=== PATIENT | male | born 1985 | race Caucasian/White ===

== ENCOUNTER 2020-07-14 14:07 | Emergency (ER) | payer SELFPAY ==
--- NOTE | 2020-07-14 14:15 | XR_ITS ---
EXAMINATION: XR CHEST CLINICAL INFORMATION: Fever COMPARISON: None TECHNIQUE: Frontal view of the chest was obtained. FINDINGS: No significant abnormality is noted involving the heart, lungs, mediastinum, bony thorax or soft tissues. XR/XR chest 1V IMPRESSION: Unremarkable chest exam
--- NOTE | 2020-07-14 14:15 | ED.EXTPRO ---
HPI - Extremity Problem General Chief complaint: Extremity Injury, Lower Stated complaint: bilateral foot infection Time Seen by Provider: 07/14/20 14:14 Source: patient and EMS Mode of arrival: EMS Limitations: no limitations History of Present Illness MD Complaint: extremity pain and extremity swelling Onset (ago): day(s) (few) Pain Consistency: constant Location: left and right Quality: aching Radiation: none Relieving factors: nothing Exacerbating factors: walking Associated symptoms: denies other symptoms Context: other (has blisters on his feet and toe pain from tight sneakers) Related Data Allergies Allergy/AdvReac Type Severity Reaction Status Date / Time aripiprazole [From ABILIFY] Allergy Unknown UNKNOWN Unverified 05/25/20 19:05 lithium [LITHIUM] Allergy Unknown UNKNOWN Unverified 05/25/20 19:05 risperidone [From RISPERDAL] Allergy Unknown UNKNOWN Unverified 05/25/20 19:05 Review of Systems Review of Systems: Constitutional : No Fever, No Chills ENT/Mouth : No sore throat, No Rhinorrhea Eyes: No Eye Pain, No Swelling, No Redness Cardiovascular : No Chest Pain, No SOB Respiratory : No Cough, No Sputum Gastrointestinal : No Nausea, No Vomiting, No Diarrhea, No abdominal Pain Genitourinary : No Dysuria, No Hematuria Musculoskeletal : po joint pain, No Myalgias, No Joint Swelling Skin : pos Skin Lesions, positive skin rash Neuro : No Weakness, No Numbness, No Headache Psych : No Anxiety, No Depression Heme/Lymph: No Bruising, No Bleeding,No Lymphadenopathy Endocrine : No Polyuria, No Polydipsia All other systems reviewed and are negative [facility] Past Medical History Attestation statement: The following information was validated with the patient. Medical History (Updated 07/14/20 @ 16:16 by Magda Marin DO) Impulse control disease Substance abuse Social History Social History (Updated 07/14/20 @ 14:20 by Magda Marin DO) Smoking Status: Current every day smoker Substance Use Type: Former Substance User Advance Directives: No Advance Directives Information Provided: No Physical Exam Vital Signs: Vital Signs: Last Vital Signs Temp 99.8 F 07/14/20 15:22 Pulse 95 07/14/20 15:22 Resp 15 07/14/20 15:22 BP 101/62 11/06/20 15:22 Pulse Ox 97 07/14/20 15:22 Body Mass Index 25.1 Appearance: Alert. Oriented X3. No acute distress. appears intoxicated Eyes: Pupils equal, round and reactive to light. ENT: Pharynx normal. Neck: Normal inspection. Neck supple. CVS: Normal heart rate and rhythm. Pulses normal. Respiratory: No respiratory distress. Breath sounds normal. Abdomen: Soft and nontender. Skin: Skin warm and dry. Normal skin color. Normal skin turgor. Extremities: No lower extremity edema. No calf ttp bilateral dorsum of feet have blisters noted and poor nail care as well as fungus there is no drainage, abscess, extending erythema Neuro: Oriented X 3. No motor deficit. No sensory deficit. Course Course Course Narrative: signed out to Dr. Alfredo pending COVID swab, labs MDM - Extremity (Nontraumatic) MDM Narrative Medical decision making narrative: 35 yo male with bilateral foot blisters found to be febrile - denies any symptoms, blisters are not the source, he appears under the influence, adamantly denies IVDA I do not see track clark at this time, will obtain labs, CXR, covid swab, provide socks and wound care Discharge Plan Discharge Clinical Impression: Fever, Blister
[2020-07-14 15:22] VITALS: BP 101/62; BP 140/80; PULSE 68; PULSE 95; RESP 15; TEMP 37.7; O2SAT 97; O2SAT 98; BMI 25.1
[2020-07-14] MEDS: Acetaminophen 325 MG TABLET 650 MG PO (16:41)
--- NOTE | 2020-07-14 17:45 | PC.NURSE ---
pt has been stuck multiple times for blood labs w no success. pt is difficult stick d/t ivda, per pt. pt requesting that he take a break from trying to draw blood.
--- NOTE | 2020-07-14 18:11 | XR_ITS ---
EXAMINATION: XR FOOT, LEFT CLINICAL INFORMATION: Tender great toe with swelling COMPARISON: None TECHNIQUE: AP, lateral, and oblique views of the left foot. FINDINGS: Multiple punctate and linear densities overlie the toes, the majority of which are clearly external, limiting assessment for a subcutaneous foreign body. There is no acute fracture or dislocation. No periarticular osteopenia or erosions. XR/XR foot LT min 3V IMPRESSION: No acute osseous abnormality. Evaluation for subtle foreign body is limited due to overlying densities.
[2020-07-14] MEDS: cephALEXin 500 MG CAPSULE PO (18:22)
--- NOTE | 2020-07-14 18:35 | PC.NURSE ---
provider at bedside. blood labs cancelled. pt asking if he can just have imaging of his feet and abx. provider aware, medicated per emar, tolerating po w/o issue. wctm.
== END 2020-07-14 18:58 | disposition home or self-care (01) ==
PROVIDERS: Emergency Provider Internal Medicine
DX: S90.415A Abrasion, left lesser toe(s), initial encounter (principal); S90.414A Abrasion, right lesser toe(s), initial encounter; R50.9 Fever, unspecified; M79.672 Pain in left foot; M79.671 Pain in right foot; X58.XXXA Exposure to other specified factors, initial encounter; Y93.9 Activity, unspecified; Y92.9 Unspecified place or not applicable; Y99.9 Unspecified external cause status
CPT/HCPCS: 71045; 73630; 99283; 99284

== ENCOUNTER 2020-07-18 00:24 | Emergency (ER) | payer SELFPAY ==
[2020-07-18 00:34] VITALS: BP 118/76; BP 157/75; PULSE 77; PULSE 92; RESP 18; TEMP 37; O2SAT 96; O2SAT 98; BMI 22.8
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
[2020-07-18] MEDS: LORazepam 2 MG/ML VIAL IM (01:25)
--- NOTE | 2020-07-18 01:29 | PC.NURSE ---
Provider at bedside to staple patient's laceration. Patient medicated per Emar as noted to enable patient to tolerate the procedure as patient didn't want any lidocaine used. Patient tolerated the procedure without incident. patient received 5 kiran to laceration on left side of head
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
[2020-07-18 02:00] VITALS: RESP 15
--- NOTE | 2020-07-18 02:02 | PC.NURSE ---
Patient is ready for discharge but is currently resting and will be discharged in a couple of hours.
[2020-07-18 04:00] VITALS: RESP 15
[2020-07-18 06:00] VITALS: BP 110/77; PULSE 77; RESP 14; O2SAT 95
--- NOTE | 2020-07-18 06:04 | PC.NURSE ---
Patient had been ready for discharge since 145 am today. 1st attempt made to discharge patient but he kept falling asleep. Patient was allowed to stay and sleeping until 5:00 am. Attempted to discharge patient again. Patient quite sleepy but does rouse to voice. This copywriter unable to get patient awake and alert enough and security called to help rouse patient so that he could be discharge. Patient would rouse and then immediately fall asleep. Security and staff unable to keep patient awake enough to get dressed and be discharged. MD and Charge nurse away.
--- NOTE | 2020-07-18 07:56 | PC.NURSE ---
pt given 30 min to wake up and get dressed. pt still not moving out of bed. security called to escort pt out of room.
== END 2020-07-18 08:08 | disposition home or self-care (01) ==
PROVIDERS: Emergency Provider Emergency Medicine
DX: S01.01XA Laceration without foreign body of scalp, initial encounter (principal); G44.309 Post-traumatic headache, unspecified, not intractable; Y04.8XXA Assault by other bodily force, initial encounter; Y93.9 Activity, unspecified; Y92.410 Unspecified street and highway as the place of occurrence of the external cause; Y99.9 Unspecified external cause status; Z23 Encounter for immunization
CPT/HCPCS: 70450; 70486; 72125; 90471; 90715; 96372; 99284; J2060

== ENCOUNTER 2021-04-19 22:08 | Emergency (ER) | payer MEDICAID, SELFPAY ==
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
[2021-04-19 22:17] VITALS: BP 128/90; PULSE 70; O2SAT 99
[2021-04-20 03:13] VITALS: BP 103/65; PULSE 54; RESP 16; O2SAT 100; BMI 21.7
[2021-04-20 04:00] VITALS: BP 124/76; PULSE 68; RESP 18; O2SAT 98
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
== END 2021-04-20 06:53 | disposition home or self-care (01) ==
PROVIDERS: Emergency Provider Student in an Organized Health Care Education/Training Program
DX: S00.93XA Contusion of unspecified part of head, initial encounter (principal); G44.309 Post-traumatic headache, unspecified, not intractable; F17.200 Nicotine dependence, unspecified, uncomplicated; F12.90 Cannabis use, unspecified, uncomplicated; Y04.8XXA Assault by other bodily force, initial encounter; Y93.9 Activity, unspecified; Y92.410 Unspecified street and highway as the place of occurrence of the external cause; Y99.9 Unspecified external cause status; Z71.6 Tobacco abuse counseling
CPT/HCPCS: 70450; 99284

== ENCOUNTER 2021-12-09 05:54 | Emergency (ER) | payer MEDICAID, SELFPAY ==
[2021-12-09 06:03] VITALS: BP 125/74; PULSE 107; RESP 15; TEMP 37.7; O2SAT 94; BMI 24.4
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
[2021-12-09 08:45] LABS: MANUAL DIFF FLAG NO
[2021-12-09 08:46] LABS: Basophils Percent Auto 0.3 % (0-2); Eosinophils Percent Auto 0.2 % (0-4); Hematocrit 35.2 % (42.0-52.0); Hemoglobin 11.6 g/dl (14.0-18.0); Imm Gran Abs Auto 0.03 X10*3/uL (0.00-0.03); Imm Gran Pct Auto 0.3 % (0.0-0.4); Lymphocytes Absolute Auto 1.1 X10*3/uL (1.2-4.9); Lymphocytes Percent Auto 9.7 % (20-40); Mean Corpuscular Hemoglobin 28.2 pg (27.0-33.0); Mean Corpuscular Volume 85.6 fL (80.0-98.0); Mean Platelet Volume 9.4 fL (9.4-12.4); Monocytes Percent Auto 9.5 % (2-11); Neutrophils Absolute Auto 8.6 x10*3/uL (2.0-8.3); Platelet Count 223 X10*3/uL (160-400); Red Blood Count 4.11 X10*6/uL (4.60-5.80); Red Cell Distribution Width 14.4 % (11.0-16.0); White Blood Count 10.8 X10*3/uL (4.8-10.8)
[2021-12-09 09:07] LABS: Ethanol < 10 mg/dL
[2021-12-09 09:10] LABS: Alanine Aminotransferase 20 U/L (0-40); Albumin Level 4.1 g/dL (3.5-5.0); Alkaline Phosphatase 71 U/L (39-117); Anion Gap 14 (12-20); Aspartate Amino Transferase 29 U/L (5-37); Bilirubin Direct 0.5 mg/dL (0.0-0.5); Bilirubin Total 1.1 mg/dL (0.0-1.0); Blood Urea Nitrogen 17 mg/dL (9-16); Calcium 9.1 mg/dL (8.4-10.2); Carbon Dioxide 26 mmol/L (22-29); Chloride 103 mmol/L (96-108); Creatinine Clr Calc Pharmacy 147.5; Estimated Glomerular Filt Rate > 60; Glucose Random 90 mg/dL (60-115); Lipase 6 U/L (8-78); Potassium 3.5 mmol/L (3.3-5.1); Sodium 139 mmol/L (135-145); Total Protein 6.8 g/dL (6.5-8.0)
--- NOTE | 2021-12-09 12:50 | MHC.CARE ---
Risk Assessment: Pt presented to the ED with polysubstnace use. Pt is currently denying SI/HI/VH/AH. Pt reports he is from [place] and in this area due to cheaper drugs. Pt reports history of methadone and suboxone. Pt reports interest in substance use treatment. Plan for Pt to be deferred to recovery team for assistance with detox placement CARE Team discussed plan with Dr. Ramirez
--- NOTE | 2021-12-09 14:19 | MHC.RECOVSUP ---
Recovery Support note: Patient is a 36 year old Malay speaking male who presented to [facility] [place] ED after using heroin seeking treatment. Patient was cleared by CARE Team and referred to this scenario writer for assistance with ATS referrals. Patient reports he has been to ATS multiple times in [place] and that he has been on Suboxone and methadone. Patient interested in going to [place] for treatment as he is unable to admit to a [place] facility due to insurance. [facility]y [facility] and [facility] contacted however they do not process referrals over the weekend. Patient release and information sent for review. Discussed situation with patient's Mother, Barbara ([phone]). She is comfortable with patient returning home however reports that they are elderly and unable to provide transportation. Discussed case with patient. He is interested in receiving a Suboxone prescription to hold him over until he can get into treatment. Education provided regarding Suboxone initiation. Patient reports no questions at this time. Discussed case with CARE Team and ED staff. Patient to be transported via Lyft. This scenario writer will follow up with Sarahy Wagner and patient tomorrow.
== END 2021-12-09 14:09 | disposition home or self-care (01) ==
PROVIDERS: Emergency Provider Emergency Medicine
DX: F11.10 Opioid abuse, uncomplicated (principal); F14.10 Cocaine abuse, uncomplicated; F17.200 Nicotine dependence, unspecified, uncomplicated; Z71.6 Tobacco abuse counseling; Z79.899 Other long term (current) drug therapy; Z71.51 Drug abuse counseling and surveillance of drug abuser
CPT/HCPCS: 36415; 80048; 80076; 82077; 83690; 85025; 99284; 99285

== ENCOUNTER 2022-01-23 23:30 | Emergency (ER) | payer MEDICAID, SELFPAY ==
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
[2022-01-23 23:38] VITALS: BP 152/90; PULSE 88; O2SAT 96
--- NOTE | 2022-01-23 23:47 | PC.NURSE ---
pt yelling upon arrival, i need perc 30s, i want my gabapentin MD over to see pt. MD gave pt sandwiches and milk. when this RN went to assess pt, and ask about pain.. pt stated, I dont need to talk to you, I already talked to the doctor
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
[2022-01-24] MEDS: Gabapentin 400 MG CAPSULE PO (00:30)
[2022-01-24 00:31] VITALS: BP 126/65; PULSE 84; RESP 18; TEMP 36.1; O2SAT 96
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
--- NOTE | 2022-01-24 00:58 | PC.NURSE ---
pt ambulated to BR to void. steady gait while ambulating independently
[2022-01-24 01:06] LABS: Appearance Urine HAZY; Color Urine DK YELLOW; Glucose Urine UA NEG (NEG); Leukocyte Esterase Urine NEG (NEG); Nitrite Urine NEG (NEG); Specific Gravity - Urine >= 1.030 (1.005-1.025); UACC Culture Trigger NO; Urine Blood NEG (NEG); Urine Ketones NEG (NEG); Urine Protein 1+ MG/DL (NEG-TRACE)
[2022-01-24 01:18] LABS: Bacteria Urine TRACE /LPF; Mucus Urine 2+ /LPF; RBC Urine 0 /HPF (0); WBC Urine 0-2 /HPF (0-4)
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
[2022-01-24 01:30] LABS: Amphetamine Screen Urine Not Detected (Not Detect); Barbiturates, Urine Not Detected (Not Detect); Benzodiazepines Screen Urine Not Detected (Not Detect); Cannabinoid Screen Urine POSITIVE (Not Detect); Cocaine Screen Urine POSITIVE (Not Detect); Fentanyl, urine POSITIVE (Not Detect); Opiate Screen Urine POSITIVE (Not Detect); Phencyclidine Screen Urine POSITIVE (Not Detect)
--- NOTE | 2022-01-24 03:54 | PC.NURSE ---
pt sleeping in bed
[2022-01-24 05:52] VITALS: BP 112/73; PULSE 57; RESP 18; TEMP 37.1; O2SAT 98
[2022-01-24] MEDS: Erythromycin Base 0.5% Oph Oin 1 GM TUBE 1 CM EYE-RIGHT (06:02)
[2022-01-24 07:08] VITALS: BMI 24.4
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
--- NOTE | 2022-01-24 10:36 | MHC.RECOVSUP ---
? Reason for consult:Recovery Support o Current location:ED 22h o Identified substance use concern: Heroin - Support ? Intervention: o Community resources provided o ? Plan: o Referral to [facility] o Patient to follow up with [facility] after discharge ? Additional information:Patient refused detox, Patient given community resources and referred to [facility] and the [facility]
== END 2022-01-24 10:49 | disposition home or self-care (01) ==
LOC: HO.ED 01-24 01:02
PROVIDERS: Emergency Provider Emergency Medicine
DX: T40.1X1A Poisoning by heroin, accidental (unintentional), initial encounter (principal); H10.9 Unspecified conjunctivitis; M79.601 Pain in right arm; M79.602 Pain in left arm; Y92.9 Unspecified place or not applicable; Z71.51 Drug abuse counseling and surveillance of drug abuser; Z79.899 Other long term (current) drug therapy
CPT/HCPCS: 73060; 73090; 80307; 81001; 99284

== ENCOUNTER 2022-04-19 09:22 | Emergency (ER) | payer MEDICAID, SELFPAY ==
[2022-04-19 09:32] VITALS: BP 129/81; PULSE 85; RESP 18; TEMP 37.4; O2SAT 96; BMI 24.4
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
== END 2022-04-19 10:42 | disposition home or self-care (01) ==
PROVIDERS: Emergency Provider Student in an Organized Health Care Education/Training Program
DX: L03.011 Cellulitis of right finger (principal); M79.644 Pain in right finger(s); T23.121A Burn of first degree of single right finger (nail) except thumb, initial encounter; T31.0 Burns involving less than 10% of body surface; T79.8XXA Other early complications of trauma, initial encounter; X19.XXXA Contact with other heat and hot substances, initial encounter; Y93.89 Activity, other specified; Y92.143 Cell of prison as the place of occurrence of the external cause; Y99.9 Unspecified external cause status; F19.10 Other psychoactive substance abuse, uncomplicated; F11.20 Opioid dependence, uncomplicated
CPT/HCPCS: 16000; 99283

== ENCOUNTER 2024-06-23 23:54 | Emergency (ER) | payer MEDICAID, SELFPAY ==
--- NOTE | ~2024-06-23 | XR_ITS ---
EXAMINATION: XR FOOT, RIGHT CLINICAL INFORMATION: Pain in right foot COMPARISON: None available. TECHNIQUE: AP, lateral, and oblique views of the right foot. FINDINGS: The bones and soft tissues are normal. No fracture. Alignment is anatomic. Joint spaces are maintained. XR/XR foot RT min 3V IMPRESSION: Normal right foot. Electronically signed by: Rambo De La Garza MD 06/24/2024 07:52 AM EDT RP
--- NOTE | ~2024-06-23 | XR_ITS ---
EXAMINATION: XR CHEST CLINICAL INFORMATION: Cough. COMPARISON: July 14, 2020. TECHNIQUE: Frontal view of the chest was obtained. FINDINGS: The cardiomediastinal silhouette is within normal limits. There is no focal lung consolidation or pleural effusions. The bony structures and soft tissues are unremarkable. XR/XR chest 1V IMPRESSION: No acute cardiopulmonary process. Electronically signed by: Gray Wilson MD 06/24/2024 06:21 AM EDT
--- NOTE | ~2024-06-23 | XR_ITS ---
EXAMINATION: XR FOOT, LEFT CLINICAL INFORMATION: Left foot pain. COMPARISON: None available. TECHNIQUE: AP, lateral, and oblique views of the left foot. FINDINGS: The bones and soft tissues are normal. No fracture. Alignment is anatomic. Joint spaces are maintained. XR/XR foot LT min 3V IMPRESSION: Normal left foot. Electronically signed by: Rambo De La Garza MD 06/24/2024 07:54 AM EDT
[2024-06-24] VITALS (7 sets, daily range): BP systolic 90–150; BP diastolic 41–84; PULSE 75–86; RESP 12–16; TEMP -17.7–37.9; O2SAT 96–100; BMI 28.9
--- NOTE | 2024-06-24 00:12 | ECG_ITS ---
Test Reason : TACHY Blood Pressure : / mmHG Vent. Rate : 081 BPM Atrial Rate : 081 BPM P-R Int : 154 ms QRS Dur : 094 ms QT Int : 368 ms P-R-T Axes : 078 076 060 degrees QTc Int : 427 ms Artifact in tracing Normal sinus rhythm Premature ventricular complexes otherwise Normal ECG No previous ECGs available Referred By: Maik Angel Electronically Signed By:JACKY ELIZALDE
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
[2024-06-24 00:53] LABS: MANUAL DIFF FLAG NO
[2024-06-24 00:57] LABS: Basophils Percent Auto 0.2 % (0-2); Eosinophils Percent Auto 0.1 % (0-4); Hematocrit 34.3 % (42.0-52.0); Hemoglobin 11.5 g/dl (14.0-18.0); Imm Gran Abs Auto 0.09 X10*3/uL (0.00-0.03); Imm Gran Pct Auto 0.7 % (0.0-0.4); Lymphocytes Absolute Auto 1.1 X10*3/uL (1.2-4.9); Lymphocytes Percent Auto 8.5 % (20-40); Mean Corpuscular HGB Conc 33.5 g/dl (31.0-36.0); Mean Corpuscular Hemoglobin 30.2 pg (27.0-33.0); Mean Platelet Volume 9.4 fL (9.4-12.4); Monocytes Absolute Auto 1.1 X10*3/uL (0.1-1.2); Monocytes Percent Auto 8.6 % (2-11); Neutrophils Absolute Auto 10.7 x10*3/uL (2.0-8.3); Neutrophils Percent Auto 81.9 % (45-73); Platelet Count 292 X10*3/uL (160-400); Red Blood Count 3.81 X10*6/uL (4.60-5.80); Red Cell Distribution Width 13.8 % (11.0-16.0); White Blood Count 13.1 X10*3/uL (4.8-10.8)
[2024-06-24 01:15] LABS: Alanine Aminotransferase 80 U/L (0-40); Albumin Level 4.1 g/dL (3.5-5.0); Alkaline Phosphatase 72 U/L (39-117); Anion Gap 15 (12-20); Aspartate Amino Transferase 124 U/L (5-37); Bilirubin Total 0.6 mg/dL (0.0-1.0); Blood Urea Nitrogen 17 mg/dL (9-16); Calcium 9.3 mg/dL (8.4-10.2); Carbon Dioxide 28 mmol/L (22-29); Chloride 102 mmol/L (96-108); Creatinine Clr Calc Pharmacy 120.5; Estimated Glomerular Filt Rate > 60; Ethanol < 10 mg/dL; Glucose Random 122 mg/dL (60-115); Potassium 3.5 mmol/L (3.3-5.1); Sodium 141 mmol/L (135-145); Total Protein 6.8 g/dL (6.5-8.0)
[2024-06-24] MEDS: droPERidol 5 MG/2 ML VIAL IM (01:27)
[2024-06-24] MEDS: Midazolam HCl 5 MG/ML VIAL IVPUSH (01:31)
[2024-06-24 01:33] LABS: Influenza A PCR NEGATIVE (Negative); Influenza B PCR NEGATIVE (Negative); Resp Syncy Virus RNA Qual PCR NEGATIVE (Negative); SARS COV2 PCR INHOUSE NEGATIVE (Negative)
--- NOTE | 2024-06-24 01:54 | ED.GENADULT ---
HPI - General Adult General Chief complaint: Behavioral Concerns Stated complaint: FOOT PAIN/ POSSIBLE INFECTION Time Seen by Provider: 06/24/24 00:05 History of Present Illness ED Provider: Stanley DUMONT narrative: 3-year-old male with past medical history of polysubstance abuse presenting for bilateral foot pain and agitation. Patient was picked up by ambulance by [facility] and he was visibly agitated complaining of bilateral foot pain. Patient arrived to the ED still agitated initially not cooperating with staff however he eventually calmed down and told me that his feet have been bothering him and that ?electronic communications technician are trying to kill me?. He denies head pain, neck pain, chest pain, shortness of breath, abdominal pain. He denies SI however endorses HI. He denies drug use/alcohol use. Related Data Previous Rx's ?Medication ?Instructions ?Recorded buprenorphine 8 mg-naloxone 2 mg 1 film buccal DAILY #4 ea 12/09/21 sublingual film (Suboxone) erythromycin 5 mg/gram (0.5 %) eye 0.5 inch ophthalmic (eye) TID #3.5 01/24/22 ointment grams cephalexin 500 mg tablet 500 mg PO Q6H 7 days #28 tabs 04/19/22 doxycycline hyclate 50 mg tablet 100 mg (2 x 50 mg) PO BID 7 days 04/19/22 #28 tabs Allergies Allergy/AdvReac Type Severity Reaction Status Date / Time aripiprazole [From ABILIFY] Allergy Unknown UNKNOWN Verified 06/24/24 00:15 lithium [LITHIUM] Allergy Unknown UNKNOWN Verified 06/24/24 00:15 risperidone [From RISPERDAL] Allergy Unknown UNKNOWN Verified 06/24/24 00:15 Review of Systems Review of Systems: Patient endorses for pain, HI Yes all other systems are reviewed and are negative PMFSH Past Medical History Medical History Impulse control disease Substance abuse Surgical History No history of previous surgery Social History Social History Alcohol intake: current Alcohol intake frequency: 3 or more drinks per day Patient Tobacco Use Status: Current everyday Tobacco user Substance Use Type: Crack/Cocaine and Heroin Advance Directives: No Advance Directives Information Provided: Yes Do you have a plan to hurt others: Vague Physical Exam ED Vital Signs: Vital Signs - 24 hr 06/24/24 00:06 06/24/24 02:13 Temperature 100.2 F Pulse Rate 85 86 Respiratory Rate 16 14 Blood Pressure 126/77 Pulse Oximetry 96 100 Oxygen Delivery Method Room Air BMI result Body Mass Index 28.9 Disheveled appearance Head normocephalic atraumatic; no midline C-spine tenderness to palpation Lungs clear to auscultation bilaterally; normal S1-S2 regular rate and rhythm Abdomen is soft nontender nondistended Superficial abrasions noted to bilateral feet and areas of peeling noted to the soles; neurovascularly intact with good DP pulses Medications Administered Discontinued Medications Generic Name Dose Route Start Last Admin Trade Name Freq PRN Reason Stop Dose Admin Droperidol 5 mg 06/24/24 01:14 06/24/24 01:27 Droperidol 5 Mg/2 Ml Vial IM 06/24/24 01:15 5 mg ONCE ONE Administration Ketorolac Tromethamine 15 mg 06/24/24 00:13 06/24/24 00:42 Ketorolac Tromethamine 15 Mg/Ml Vial IVPUSH 06/24/24 00:14 Not Given ONCE ONE Midazolam HCl 5 mg 06/24/24 01:30 06/24/24 01:31 Midazolam Hcl 5 Mg/Ml Vial IVPUSH 06/24/24 01:31 5 mg ONCE ONE Administration Medical Decision Making Medical Decision Making MDM Narrative: This is a 39-year-old male presenting for for pain and agitation. I am concerned for psychiatric illness versus underlying infection versus electrolyte/metabolic disturbance - lab work ordered - patient becoming more and more agitated in the ED. I had multiple discussions with him asked him and offered p.o. antipsychotics however patient declined stating he does not want take any meds. - patient moved to a hallway for better supervision and there he became more agitated getting about of a stretcher threatening to leave. Security called and report the bedside for assistance. I again offered patient p.o. meds however declines and he is not taking anything stating that he wants to call the police. Patient continuing to get out of the stretcher with multiple staff including secruity and nurses at bedside attempting to de-escalate. - droperidol and Versed administered with good effect - pt placed on endtidal - mass notable for mildly elevated white count, stable H and H, normal electrolytes and creatinine, elevated AST - he is still patient here in the emergency department and I signed him out to the night provider Lab Data 06/24/24 00:49 06/24/24 00:49 Labs: Lab Results 06/24/24 Range/Units 00:49 WBC 13.1 H (4.8-10.8) X10*3/uL RBC 3.81 L (4.60-5.80) X10*6/uL Hgb 11.5 L (14.0-18.0) g/dl Hct 34.3 L (42.0-52.0) % MCV 90.0 (80.0-98.0) fL MCH 30.2 (27.0-33.0) pg MCHC 33.5 (31.0-36.0) g/dl RDW 13.8 (11.0-16.0) % Plt Count 292 D (160-400) X10*3/uL MPV 9.4 (9.4-12.4) fL Immature Gran % (Auto) 0.7 H (0.0-0.4) % Neut % (Auto) 81.9 H (45-73) % Lymph % (Auto) 8.5 L (20-40) % [place] % (Auto) 8.6 (2-11) % Eos % (Auto) 0.1 (0-4) % Baso % (Auto) 0.2 (0-2) % Lymph # (Auto) 1.1 L (1.2-4.9) X10*3/uL [place] # (Auto) 1.1 (0.1-1.2) X10*3/uL Eos # (Auto) 0.0 (0.0-0.4) X10*3/uL Baso # (Auto) 0.0 (0.0-0.2) X10*3/uL Abs Immat Gran (auto) 0.09 H (0.00-0.03) X10*3/uL Absolute Neuts (auto) 10.7 H (2.0-8.3) x10*3/uL Absolute Nucleated RBC 0.000 (0.0-0.012) X10*3/uL Nucleated RBC % (auto) 0.0 (0.0-0.2) /100WBC Sodium 141 (135-145) mmol/L Potassium 3.5 (3.3-5.1) mmol/L Chloride 102 (96-108) mmol/L Carbon Dioxide 28 (22-29) mmol/L Anion Gap 15 (12-20) BUN 17 H (9-16) mg/dL Creatinine 0.87 (0.5-1.4) mg/dL Estim Creat Clear Calc 120.5 Estimated GFR > 60 Random Glucose 122 H (60-115) mg/dL Calcium 9.3 (8.4-10.2) mg/dL Total Bilirubin 0.6 (0.0-1.0) mg/dL AST 124 H (5-37) U/L ALT 80 H (0-40) U/L Alkaline Phosphatase 72 (39-117) U/L Total Protein 6.8 (6.5-8.0) g/dL Albumin 4.1 (3.5-5.0) g/dL Ethyl Alcohol < 10 mg/dL Influenza Type A (PCR) NEGATIVE (Negative) Influenza Type B (PCR) NEGATIVE (Negative) RSV RNA Qual (PCR) NEGATIVE (Negative) SARS-CoV-2 RNA (RT-PCR) NEGATIVE (Negative) Discharge Plan Discharge Clinical Impression: Homicidal ideations, Agitation, Bilateral foot pain Patient Disposition: Still a Patient Prescriptions: No Action buprenorphine-naloxone [Suboxone] 8-2 mg film 1 film buccal DAILY Qty: 4 0RF erythromycin 5 mg/gram (0.5 %) ointment 0.5 inch ophthalmic (eye) TID Qty: 3.5 0RF Rx Instructions: Have ribbon to the right eye 3 times a day for 5 days doxycycline hyclate 50 mg tablet 100 mg PO BID 7 Days Qty: 28 0RF cephalexin 500 mg tablet 500 mg PO Q6H 7 Days Qty: 28 0RF Print Language: Tristanian
--- NOTE | 2024-06-24 02:14 | MHC.EDTECH ---
UTO BP due to pt being uncooperative. KAVITA crystal
[2024-06-24 11:27] LABS: Appearance Urine Clear; Color Urine Dark Yellow; Glucose Urine UA Negative (Negative); Leukocyte Esterase Urine Negative (Negative); Nitrite Urine Negative (Negative); PH 6.5 (5.0-9.0); Specific Gravity - Urine >= 1.030 (1.005-1.025); UMIC TRIGGER UACC YES; Urine Blood Negative (Negative); Urine Ketones 15 mg/dL (Negative); Urine Protein 30 (1+) mg/dL (Neg-Trace)
[2024-06-24 11:33] LABS: Bacteria Urine None Seen (None Seen); Hyaline Casts Urine 0-2 /LPF (0-2); RBC Urine 0-2 /HPF (0-2); Squamous Epithelial Cell Urine 0-2 /HPF (0-2); WBC Urine 0-5 /HPF (0-5)
[2024-06-24 11:39] LABS: Amphetamine Screen Urine Not Detected (Not Detect); Barbiturates, Urine Not Detected (Not Detect); Benzodiazepines Screen Urine POSITIVE (Not Detect); Buprenorphine Scr Not Detected (Not Detect); Cannabinoid Screen Urine POSITIVE (Not Detect); Cocaine Screen Urine POSITIVE (Not Detect); Fentanyl, urine POSITIVE (Not Detect); Methadone Screen, Urine Not Detected (Not Detect); Opiate Screen Urine POSITIVE (Not Detect); Oxycodone Screen Urine Not Detected (Not Detect); Phencyclidine Screen Urine Not Detected (Not Detect)
== END 2024-06-24 13:26 | disposition home or self-care (01) ==
PROVIDERS: Student in an Organized Health Care Education/Training Program; Emergency Provider Emergency Medicine
DX: M79.671 Pain in right foot (principal); M79.672 Pain in left foot; R45.1 Restlessness and agitation; R00.0 Tachycardia, unspecified; R45.850 Homicidal ideations; F17.210 Nicotine dependence, cigarettes, uncomplicated; F11.90 Opioid use, unspecified, uncomplicated; F14.90 Cocaine use, unspecified, uncomplicated; Z03.818 Encounter for observation for suspected exposure to other biological agents ruled out; Z51.81 Encounter for therapeutic drug level monitoring; Z79.899 Other long term (current) drug therapy
CPT/HCPCS: 0241U; 36415; 71045; 73630; 80053; 80307; 81001; 85025; 93005; 96372; 96374; 99285; J1790; J1885; J2250; S9485

== ENCOUNTER → 2024-06-24 00:12 | Outpatient (BNV) | payer MEDICAID, SELFPAY | PROVIDERS: Emergency Provider Emergency Medicine; Visit Provider Internal Medicine | DX: R00.0 Tachycardia, unspecified (principal) | CPT/HCPCS: 93010 ==

== ENCOUNTER 2024-07-17 13:29 | Emergency (ER) | payer MEDICAID, SELFPAY ==
--- NOTE | ~2024-07-17 | XR_ITS ---
EXAMINATION: XR FOOT, LEFT CLINICAL INFORMATION: Left foot pain COMPARISON: Left foot xray on 06/24/24 TECHNIQUE: AP, lateral, and oblique views of the left foot. FINDINGS: The bones and soft tissues are normal. No fracture. Alignment is anatomic. Joint spaces are maintained. XR/XR foot LT min 3V IMPRESSION: Normal left foot. Electronically signed by: Shaniqua Monaco MD 07/17/2024 04:31 PM [facility]
[2024-07-17 13:34] VITALS: BP 98/76; PULSE 91; RESP 18; TEMP 37.3; O2SAT 99; BMI 32.5
--- NOTE | 2024-07-17 13:34 | ED.EXTPRO ---
HPI - Extremity Problem General Chief complaint: Extremity Problem Stated complaint: both foot pain Time Seen by Provider: 07/17/24 13:46 Source: patient Mode of arrival: ambulatory Limitations: no limitations History of Present Illness ED Provider: Catrina Frazier APRN HPI Narrative: This is a 39-year-old male who has a history of polysubstance abuse who has chronic wounds on his both of his feet who reports increasing redness and swelling to his left foot over the last few days. No fevers or chills. Patient reports that he sniffs drugs but he has not use IV drugs and more than 3 years. He denies using IV drugs in his feet. He is here because he would like some antibiotics. He does not want to be admitted to the hospital if he needs it. He is not currently taking any Suboxone or methadone and is not interested in this Related Data Previous Rx's ?Medication ?Instructions ?Recorded buprenorphine 8 mg-naloxone 2 mg 1 film buccal DAILY #4 ea 12/09/21 sublingual film (Suboxone) erythromycin 5 mg/gram (0.5 %) eye 0.5 inch ophthalmic (eye) TID #3.5 01/24/22 ointment grams cephalexin 500 mg tablet 500 mg PO Q6H 7 days #28 tabs 04/19/22 doxycycline hyclate 50 mg tablet 100 mg (2 x 50 mg) PO BID 7 days 04/19/22 #28 tabs cephalexin 500 mg capsule 500 mg PO TID 10 days #30 caps 07/17/24 doxycycline hyclate 100 mg tablet 100 mg PO BID 10 days #20 tabs 07/17/24 Allergies Allergy/AdvReac Type Severity Reaction Status Date / Time aripiprazole [From ABILIFY] Allergy Unknown UNKNOWN Verified 07/17/24 13:38 lithium [LITHIUM] Allergy Unknown UNKNOWN Verified 07/17/24 13:38 risperidone [From RISPERDAL] Allergy Unknown UNKNOWN Verified 07/17/24 13:38 Review of Systems Review of Systems: Yes all other systems are reviewed and are negative Constitutional: Constitutional: Reports no additional constitutional complaints, Denies body ache(s), Denies chills, Denies fever(s), Denies headache(s) and Denies weakness Eyes: Eyes: Reports no additional eye complaints and Denies change in vision ENT: Reports system reviewed and no additional complaints, except as documented, Denies dizziness, Denies headache(s), Denies nasal congestion, Denies nasal discharge and Denies neck pain Cardiovascular: Cardiovascular: Reports no additional cardiovascular complaints, Denies chest pain, Denies leg edema and Denies dyspnea Respiratory: Respiratory: Reports no additional respiratory complaints, Denies cough and Denies dyspnea Gastrointestinal: Gastrointestinal: Reports no additional gastrointestinal complaints, Denies abdominal pain, Denies diarrhea, Denies nausea and Denies vomiting Genitourinary: Genitourinary: Denies urinary incontinence Musculoskeletal: Musculoskeletal: Reports no additional musculoskeletal complaints, Denies back pain, Denies arthralgias, Denies joint swelling, Denies neck pain, Denies numbness and Denies tingling Integumentary/Breasts: Skin/Breast: Reports system reviewed and no additional complaints, except as docu, Reports swelling, Reports erythema, Denies rash and Reports wounds Neurologic: Reports system reviewed and no additional complaints, except as documented, Denies Abnormal speech present, Denies dizziness, Denies headache(s), Denies numbness, Denies tingling and Denies weakness PMFSH Past Medical History Attestation statement: The following information was validated with the patient. Source: old records reviewed and nursing notes reviewed Medical History Impulse control disease Substance abuse Surgical History No history of previous surgery Social History Social History Unable to assess alcohol history related to: Refusing to respond Alcohol intake: current Alcohol intake frequency: 3 or more drinks per day Patient Tobacco Use Status: Current everyday Tobacco user Substance Use Type: Crack/Cocaine and Heroin Advance Directives: No Advance Directives Information Provided: No Physical Exam Vital Signs: Vital Signs: Last Vital Signs Temp 99.2 F 07/17/24 13:34 Pulse 91 07/17/24 13:34 Resp 18 07/17/24 13:34 BP 98/76 07/17/24 13:34 Pulse Ox 99 07/17/24 13:34 O2 Del Method Room Air 07/17/24 13:34 BMI result Body Mass Index 32.5 Const: Other: disheveled General: alert and poor hygiene Nutritional Appearance: thin Orientation/consciousness: patient oriented x3 Limitations: no limitations HEENT: Head: Yes normal to inspection Ears: hearing grossly normal bilaterally General nose exam: Normal external nose present Face and sinus: Yes normal facial exam Mouth: Normal oral and palatal mucosa present Throat: Yes posterior oropharynx normal Eyes: General: appearance normal, both eyes and all related structures Pupils: Equal, round and reactive pupils present Neck: Neck: Yes normal visual inspection Chest: Chest palpation & inspection: normal inspection of the chest Resp: Effort & Inspection: normal respiratory effort Auscultation: clear to auscultation bilaterally Cardio: Rate: regular rate Rhythm: regular rhythm Peripheral pulses: Peripheral pulses 2+ throughout GI: Inspection: Yes normal to inspection Palpation (GI): Soft to palpation and nontender Auscultation: normal bowel sounds Back/Spine/Pelvis: Thoracic/Lumbar Spine: thoracic and lumbar spine normal to inspection Skin: General skin exam: no rashes or lesions noted Neuro: General: patient oriented x3, no focal motor deficits and normal sensation to monofilament Cranial nerves: Yes Equal, round and reactive pupils present Cognition (Neuro): normal cognition Speech: No Abnormal speech present Gait exam (Neuro): Normal gait present Motor exam (neuro): 5/5 motor strength present throughout Extrem: Other: Patient has some lymphangitis noted 2+ DP/PT pulses Normal sensation FROM Course Course Course Narrative: This is an RME performed by Mery Watkins CNP: Additional HPI, ROS, PE not included below will be deferred to primary provider. Patient is a 39-year-old male presents emergency department for evaluation of bilateral foot pain and concern for infection. Ongoing for many months. Seen in this emergency department about 1 month ago. Reports last seen at a hospital in [facility] about 1 week ago, states was not discharged with any antibiotics. Left foot is worse than the right. Admits to a history of bacteremia proximally 3 years ago secondary to intravenous heroin usage. Admits only to intranasal heroin usage now. Exam: Dorsum of left foot with erythema, black central fluctuance, TTP, not tolarating palpation for DP pulse. Afebrile. Not tachycardic. Plan: Serum labs, blood cultures, XR to exclude osseous involvement Reevaluation(s) Reevaluation #1: X-ray shows no evidence of osteomyelitis. Labs show leukocytosis and elevated lactic acid which is likely secondary to infection. I recommended the patient get IV fluids, IV antibiotics and be admitted to the hospital for further management but he declined this. He was willing to take oral antibiotics. He is willing to return if his blood cultures are positive for admission. We do have his contact information and he is able to get here. He will leave against medical advice Medications Administered Discontinued Medications Generic Name Dose Route Start Last Admin Trade Name Sunday PRN Reason Stop Dose Admin Cephalexin HCl 500 mg 07/17/24 14:15 07/17/24 14:24 Cephalexin 500 Mg Capsule PO 07/17/24 14:16 500 mg ONCE ONE Administration Doxycycline Monohydrate 100 mg 07/17/24 14:15 07/17/24 14:24 Doxycycline Monohydrate 100 Mg Capsule PO 07/17/24 14:16 100 mg ONCE ONE Administration Ketorolac Tromethamine 30 mg 07/17/24 14:15 07/17/24 14:24 Ketorolac Tromethamine 30 Mg/Ml Vial IM 07/17/24 14:16 30 mg ONCE ONE Administration Lidocaine HCl 1 appl 07/17/24 14:15 07/17/24 14:26 Lidocaine 4 % Cream Kit TOPICAL 07/17/24 14:16 1 appl ONCE ONE Administration Protocol Medical Decision Making Medical Decision Making MDM Narrative: 39 yo male with history of polysubstance use here with wounds which are chronic to both feet however right foot seems fine, left with cellulitis/abscess and lymphangitis. Patient adamant about not staying. Is willing to have labs, x-ray and if blood cultures return positive he has both a phone and is able to return to ER for admission. Given first dose of antibiotic here See procedure note. Patient declined lidocaine infiltration for procedure. Differential Diagnosis Differential Diagnoses: The differential diagnosis associated with the presentation includes Cellulitis, abscess Consider bacteremia, osteomyelitis, deeper space infection Admission/Observation Consideration of admission/observation: Escalation of care including admission/observation considered see course of care Lab Data MDM Lab Attestation statement: I reviewed the patient's lab results. 07/17/24 14:50 07/17/24 14:49 Labs: Lab Results 07/17/24 07/17/24 Range/Units 14:49 14:50 WBC 13.6 H (4.8-10.8) X10*3/uL RBC 3.87 L (4.60-5.80) X10*6/uL Hgb 11.6 L (14.0-18.0) g/dl Hct 34.8 L (42.0-52.0) % MCV 89.9 (80.0-98.0) fL MCH 30.0 (27.0-33.0) pg MCHC 33.3 (31.0-36.0) g/dl RDW 13.5 (11.0-16.0) % Plt Count 242 (160-400) X10*3/uL MPV 9.6 (9.4-12.4) fL Immature Gran % (Auto) 0.3 (0.0-0.4) % Neut % (Auto) 86.5 H (45-73) % Lymph % (Auto) 4.0 L (20-40) % [place] % (Auto) 7.4 (2-11) % Eos % (Auto) 1.6 (0-4) % Baso % (Auto) 0.2 (0-2) % Lymph # (Auto) 0.6 L (1.2-4.9) X10*3/uL [place] # (Auto) 1.0 (0.1-1.2) X10*3/uL Eos # (Auto) 0.2 (0.0-0.4) X10*3/uL Baso # (Auto) 0.0 (0.0-0.2) X10*3/uL Abs Immat Gran (auto) 0.04 H (0.00-0.03) X10*3/uL Absolute Neuts (auto) 11.8 H (2.0-8.3) x10*3/uL Absolute Nucleated RBC 0.000 (0.0-0.012) X10*3/uL Nucleated RBC % (auto) 0.0 (0.0-0.2) /100WBC Sodium 139 (135-145) mmol/L Potassium 3.3 (3.3-5.1) mmol/L Chloride 99 (96-108) mmol/L Carbon Dioxide 29 (22-29) mmol/L Anion Gap 14 (12-20) BUN 11 (9-16) mg/dL Creatinine 0.77 (0.5-1.4) mg/dL Estim Creat Clear Calc 112.9 Estimated GFR > 60 Random Glucose 113 (60-115) mg/dL Lactic Acid 2.3 H* (0.5-2.0) mmol/L Calcium 8.9 (8.4-10.2) mg/dL Total Bilirubin 0.4 (0.0-1.0) mg/dL AST 51 H (5-37) U/L ALT 39 (0-40) U/L Alkaline Phosphatase 88 (39-117) U/L Total Protein 6.7 (6.5-8.0) g/dL Albumin 3.7 (3.5-5.0) g/dL Independent Interpretation I performed an independent interpretation of an: Plain X-Ray Interpretation: I independently viewed the x-ray and agree with the radiology report Radiology Impression Discussion of test interpretation with radiology: I have reviewed the radiologist's reading. Radiologist Impression: [address] [address] XRay Report Signed Patient: Geovany Forde MR#: [id number] : 1985 Acct:[id number] Age/Sex: 39 / M ADM Date: 07/17/24 Loc: .ED Attending Dr: Ordering Physician: Sonia Watkins CNP Date of Service: 07/17/24 Procedure(s): XR foot LT min 3V Accession Number(s): [id number] cc: Sonia Watkins CNP; Physician,None ~ EXAMINATION: XR FOOT, LEFT CLINICAL INFORMATION: Left foot pain COMPARISON: Left foot xray on 06/24/24 TECHNIQUE: AP, lateral, and oblique views of the left foot. FINDINGS: The bones and soft tissues are normal. No fracture. Alignment is anatomic. Joint spaces are maintained. XR/XR foot LT min 3V IMPRESSION: Normal left foot. Tests considered The following testing was considered but not selected: Low concern for deeper spaced infection or abscess requiring imaging Prescription Management I considered prescription management with: Antibiotic Procedures Abscess I/D Site: lower extremity (foot) Side (if applicable): left Technique: incised with blade Sent for culture/gram staining?: No Irrigation: No Packing used?: none Discharge Plan Discharge Clinical Impression: Cellulitis Patient Disposition: Left Against Medical Advice Instructions: Cellulitis (ED), Against Medical Advice (ED), Warm Compress or Soak (ED) Additional Instructions: Take the antibiotics as prescribed Change the dressings daily At any time you are welcome to return Prescriptions: New cephalexin 500 mg capsule 500 mg PO TID 10 Days Qty: 30 0RF doxycycline hyclate 100 mg tablet 100 mg PO BID 10 Days Qty: 20 0RF No Action buprenorphine-naloxone [Suboxone] 8-2 mg film 1 film buccal DAILY Qty: 4 0RF erythromycin 5 mg/gram (0.5 %) ointment 0.5 inch ophthalmic (eye) TID Qty: 3.5 0RF Rx Instructions: Have ribbon to the right eye 3 times a day for 5 days doxycycline hyclate 50 mg tablet 100 mg PO BID 7 Days Qty: 28 0RF cephalexin 500 mg tablet 500 mg PO Q6H 7 Days Qty: 28 0RF Referrals: Physician,None [Primary Care Provider] - 1 week Stand Alone Forms: Against Medical Advice Print Language: Tanzanian
[2024-07-17] MEDS: Ketorolac Tromethamine 30 MG/ML VIAL IM (14:24)
[2024-07-17] MEDS: cephALEXin 500 MG CAPSULE PO (14:24)
[2024-07-17] MEDS: Doxycycline Monohydrate 100 MG CAPSULE PO (14:24)
[2024-07-17] MEDS: Lidocaine 4 % Cream KIT 1 APPL TOPICAL (14:26)
[2024-07-17 14:56] LABS: MANUAL DIFF FLAG NO
[2024-07-17 15:04] LABS: Basophils Percent Auto 0.2 % (0-2); Eosinophils Absolute Auto 0.2 X10*3/uL (0.0-0.4); Eosinophils Percent Auto 1.6 % (0-4); Hematocrit 34.8 % (42.0-52.0); Hemoglobin 11.6 g/dl (14.0-18.0); Imm Gran Abs Auto 0.04 X10*3/uL (0.00-0.03); Imm Gran Pct Auto 0.3 % (0.0-0.4); Lymphocytes Absolute Auto 0.6 X10*3/uL (1.2-4.9); Mean Corpuscular HGB Conc 33.3 g/dl (31.0-36.0); Mean Corpuscular Volume 89.9 fL (80.0-98.0); Mean Platelet Volume 9.6 fL (9.4-12.4); Monocytes Percent Auto 7.4 % (2-11); Neutrophils Absolute Auto 11.8 x10*3/uL (2.0-8.3); Neutrophils Percent Auto 86.5 % (45-73); Platelet Count 242 X10*3/uL (160-400); Red Blood Count 3.87 X10*6/uL (4.60-5.80); Red Cell Distribution Width 13.5 % (11.0-16.0); White Blood Count 13.6 X10*3/uL (4.8-10.8)
[2024-07-17 15:11] LABS: Alanine Aminotransferase 39 U/L (0-40); Albumin Level 3.7 g/dL (3.5-5.0); Alkaline Phosphatase 88 U/L (39-117); Anion Gap 14 (12-20); Aspartate Amino Transferase 51 U/L (5-37); Bilirubin Total 0.4 mg/dL (0.0-1.0); Blood Urea Nitrogen 11 mg/dL (9-16); Calcium 8.9 mg/dL (8.4-10.2); Carbon Dioxide 29 mmol/L (22-29); Chloride 99 mmol/L (96-108); Creatinine Clr Calc Pharmacy 112.9; Estimated Glomerular Filt Rate > 60; Glucose Random 113 mg/dL (60-115); Potassium 3.3 mmol/L (3.3-5.1); Sodium 139 mmol/L (135-145); Total Protein 6.7 g/dL (6.5-8.0)
--- NOTE | 2024-07-17 15:21 | PC.NURSE ---
Call from Lab critical result Lactic acid 2.3 phone notification from
[2024-07-17 15:23] LABS: Lactic Acid 2.3 mmol/L (0.5-2.0)
[2024-07-17] MEDS: Bacitracin Oint 0.9 GM PACKET 1 APPL TOPICAL (15:45)
--- NOTE | 2024-07-17 16:00 | PC.NURSE ---
PT meets sepsis criteria, pt refuses to be admitted, Provider notified and aware, pt also stated to provider that he does not wish to be admitted.
--- NOTE | 2024-07-17 16:43 | PC.NURSE ---
PT left AMA, pt verbalizes understanding of risks of leaving AMA. AMA form signed.
[2024-07-17 16:54] LABS: Reflex Lactate? Lactic Acid Added
[2024-07-17 16:57] VITALS: BP 98/76; PULSE 91; RESP 18; TEMP 37.3; O2SAT 99
== END 2024-07-17 16:57 | disposition left against medical advice (07) ==
PROVIDERS: Nurse Practitioner Family; Emergency Provider Emergency Medicine
DX: L03.116 Cellulitis of left lower limb (principal); L02.612 Cutaneous abscess of left foot; F19.10 Other psychoactive substance abuse, uncomplicated; Z53.29 Procedure and treatment not carried out because of patient's decision for other reasons
CPT/HCPCS: 10060; 36415; 73630; 80053; 83605; 85025; 87040; 96372; 99284; J1885

== ENCOUNTER 2024-07-23 04:45 | Emergency (ER) | payer OTHER, SELFPAY ==
[2024-07-23] VITALS (14 sets, daily range): BP systolic 90–131; BP diastolic 49–78; PULSE 71–96; RESP 10–22; TEMP 36.6–37.1; O2SAT 91–97; BMI 24.9
--- NOTE | ~2024-07-23 | XR_ITS ---
EXAMINATION: XR CHEST CLINICAL INFORMATION: hypoxia COMPARISON: X-ray dated June 24, 2024 TECHNIQUE: Frontal view of the chest was obtained. FINDINGS: Indistinct margins in the perihilar regions and prominence of the interstitial markings. Linear opacities in the lower hemithoraces. No hyperinflation. No pneumothorax. Heart silhouette size is normal. S-shaped curvature of the thoracic spine. XR/XR chest 1V IMPRESSION: Consider pulmonary edema in the correct clinical settings. Electronically signed by: Yong Talamantes MD 07/23/2024 10:32 AM [facility]
--- NOTE | 2024-07-23 04:56 | ED_ITS ---
HPI - Psych General Chief Complaint: ETOH/Substance Use Stated Complaint: PCP on board psych Time Seen by Provider: 07/23/24 04:56 Source: patient and EMS Mode of arrival: EMS Limitations: altered mental status History of Present Illness ED Provider: Dr. Andre Pillai HPI Narrative: 39-year-old male with a history of polysubstance use disorder who was brought to the emergency department by ambulance for evaluation of acute psychosis. The patient was found by police. Apparently the patient had his shirt off and was dancing in the middle of the street. The patient was extremely agitated on presentation, he was dancing in the emergency department, he had pressured speech and appeared to be manic. Patient was had multiple presentations with altered mental status secondary to substance use. Patient states last urine tox screen on 06/24/2024 was positive for THC, cocaine, benzodiazepines, fentanyl and opiates. Patient was also had urine drug tests which were positive for PCP in the past. Related Data Previous Rx's ?Medication ?Instructions ?Recorded buprenorphine 8 mg-naloxone 2 mg 1 film buccal DAILY #4 ea 12/09/21 sublingual film (Suboxone) erythromycin 5 mg/gram (0.5 %) eye 0.5 inch ophthalmic (eye) TID #3.5 01/24/22 ointment grams cephalexin 500 mg tablet 500 mg PO Q6H 7 days #28 tabs 04/19/22 doxycycline hyclate 50 mg tablet 100 mg (2 x 50 mg) PO BID 7 days 04/19/22 #28 tabs cephalexin 500 mg capsule 500 mg PO TID 10 days #30 caps 07/17/24 doxycycline hyclate 100 mg tablet 100 mg PO BID 10 days #20 tabs 07/17/24 Allergies Allergy/AdvReac Type Severity Reaction Status Date / Time aripiprazole [From ABILIFY] Allergy Unknown UNKNOWN Verified 07/23/24 06:22 lithium [LITHIUM] Allergy Unknown UNKNOWN Verified 07/23/24 06:22 risperidone [From RISPERDAL] Allergy Unknown UNKNOWN Verified 07/23/24 06:22 [facility] Past Medical History Medical History Impulse control disease Substance abuse Surgical History No history of previous surgery Social History Social History Unable to assess alcohol history related to: Refusing to respond Alcohol intake: current Alcohol intake frequency: 3 or more drinks per day Patient Tobacco Use Status: Current everyday Tobacco user Substance Use Type: Crack/Cocaine and Heroin Do you have a plan to hurt others: No Plan Physical Exam Vital Signs: Vital Signs: Last Vital Signs Temp 97.8 F 07/23/24 06:20 Pulse 96 07/23/24 06:20 Resp 22 H 07/23/24 06:20 BP 96/49 L 07/23/24 06:20 Pulse Ox 96 07/23/24 06:20 O2 Del Method Room Air 07/23/24 06:20 O2 Flow Rate 2 07/23/24 06:00 BMI result Body Mass Index 24.9 Vital signs revealed an elevated respiratory rate of 22 otherwise unremarkable Exam: General: Patient was manic with pressured speech, he was dancing around in the emergency department, he would not stay on the stretcher, he was talking in a loud voice Head: Normocephalic, atraumatic EENT: Pupils were dilated and symmetric Lids normal, sclera normal, conjunctiva normal, nose normal , ears normal, throat without erythema or exudates Neck: Supple, no adenopathy Lung: breath sounds symmetric, no wheezing, rales or rhonchi Chest: symmetric movement, nontender Heart: regular rate and rhythm, normal S1, S2 no murmurs or rubs Abdomen: soft, non-tender, nondistended, normal bowel sounds Back: no vertebral tenderness, no CVAT Extremities: no deformities, moves all extremities symmetrically Medications Administered Discontinued Medications Generic Name Dose Route Start Last Admin Trade Name Freq PRN Reason Stop Dose Admin Diphenhydramine HCl 50 mg 07/23/24 04:57 07/23/24 05:07 Diphenhydramine Hcl 50 Mg/Ml Vial IM 07/23/24 04:58 50 mg ONCE ONE Administration Haloperidol Lactate 10 mg 07/23/24 04:57 07/23/24 05:07 Haloperidol Lactate 5 Mg/Ml Vial IM 07/23/24 04:58 10 mg STAT STA Administration Lorazepam 2 mg 07/23/24 04:57 07/23/24 05:06 Lorazepam 2 Mg/Ml Vial IM 07/23/24 04:58 2 mg STAT STA Administration Medical Decision Making Medical Decision Making MDM Narrative: 39-year-old male with a history of polysubstance use disorder who was brought to the emergency department by ambulance for evaluation of acute psychosis. Patient was found by police, he was dancing in the street with his shirt off. The patient has been seen here in the past with polysubstance use disorder has had tox screens which were positive for THC, cocaine, benzodiazepines, fentanyl, opiates and PCP. Differential diagnosis: ?Includes but is not limited to polysubstance use, drug psychosis Course: Patient's presentation was consistent with drug psychosis most likely PCP or cocaine. The patient did agree to sedation with IM medications therefore he was given Haldol 10 mg, Benadryl 50 mg and Ativan 2 mg IM. 1 hour after administration the patient was sleeping and resting comfortably on stretcher. 06:52 Start physician observation The patient is still resting sleeping and resting comfortably on the stretcher. the patient will remain in the emergency department until disposition can be determined or until patient's symptoms improve over time. The patient's care was turned over to my colleague, Dr. Soto. Admission/Observation Consideration of admission/observation: Escalation of care including admission/observation considered (Yes) Critical Care Time Critical Care Time Critical Care Time: Yes Total Critical Care Time: 35 Attestation: Critical Care: The patient was critically ill with a high probability of imminent or life threatening deterioration. I spent greater than 30 minutes of discontinuous time evaluating the patient,delivering critical care at the bedside, discussing and evaluating pertinent data with consultants. Critical care time does not include time spent performing separately billable procedures or teaching. Total time spent performing critical care was 35 minutes. Discharge Plan Discharge Clinical Impression: Drug psychosis Patient Disposition: Still a Patient Prescriptions: No Action buprenorphine-naloxone [Suboxone] 8-2 mg film 1 film buccal DAILY Qty: 4 0RF erythromycin 5 mg/gram (0.5 %) ointment 0.5 inch ophthalmic (eye) TID Qty: 3.5 0RF Rx Instructions: Have ribbon to the right eye 3 times a day for 5 days doxycycline hyclate 50 mg tablet 100 mg PO BID 7 Days Qty: 28 0RF cephalexin 500 mg tablet 500 mg PO Q6H 7 Days Qty: 28 0RF cephalexin 500 mg capsule 500 mg PO TID 10 Days Qty: 30 0RF doxycycline hyclate 100 mg tablet 100 mg PO BID 10 Days Qty: 20 0RF Print Language: Setswana
[2024-07-23] MEDS: LORazepam 2 MG/ML VIAL IM (05:06)
[2024-07-23] MEDS: diphenhydrAMINE HCL 50 MG/ML VIAL IM (05:07)
[2024-07-23] MEDS: Haloperidol Lactate 5 MG/ML VIAL 10 MG IM (05:07)
[2024-07-23 07:50] LABS: MANUAL DIFF FLAG NO
[2024-07-23 07:52] LABS: Basophils Absolute Auto 0.1 X10*3/uL (0.0-0.2); Basophils Percent Auto 0.6 % (0-2); Eosinophils Absolute Auto 0.2 X10*3/uL (0.0-0.4); Eosinophils Percent Auto 1.5 % (0-4); Hematocrit 36.3 % (42.0-52.0); Hemoglobin 11.7 g/dl (14.0-18.0); Imm Gran Abs Auto 0.04 X10*3/uL (0.00-0.03); Imm Gran Pct Auto 0.3 % (0.0-0.4); Lymphocytes Absolute Auto 2.4 X10*3/uL (1.2-4.9); Lymphocytes Percent Auto 20.9 % (20-40); Mean Corpuscular HGB Conc 32.2 g/dl (31.0-36.0); Mean Corpuscular Hemoglobin 29.3 pg (27.0-33.0); Mean Platelet Volume 8.9 fL (9.4-12.4); Monocytes Absolute Auto 1.3 X10*3/uL (0.1-1.2); Monocytes Percent Auto 11.3 % (2-11); Neutrophils Absolute Auto 7.5 x10*3/uL (2.0-8.3); Neutrophils Percent Auto 65.4 % (45-73); Platelet Count 378 X10*3/uL (160-400); Red Blood Count 3.99 X10*6/uL (4.60-5.80); Red Cell Distribution Width 13.7 % (11.0-16.0); White Blood Count 11.4 X10*3/uL (4.8-10.8)
--- NOTE | 2024-07-23 08:06 | PC.NURSE ---
this RN resumed care of pt at 0645. pt remains asleep at this time. vss and up to date. pt currently on 2L via NC - SPO2 @ 92%. no sob/wob noted. respirations even/unlabored. ETCO2 @ 52. pt placed on solutions sales executive displaying nsr. labs obtained/sent to lab by tech. lights dimmed to promote comfort. plan of care ongoing.
[2024-07-23 08:07] LABS: Alanine Aminotransferase 32 U/L (0-40); Albumin Level 3.8 g/dL (3.5-5.0); Alkaline Phosphatase 75 U/L (39-117); Anion Gap 9 (12-20); Aspartate Amino Transferase 51 U/L (5-37); Bilirubin Total 0.3 mg/dL (0.0-1.0); Blood Urea Nitrogen 17 mg/dL (9-16); Calcium 8.4 mg/dL (8.4-10.2); Carbon Dioxide 30 mmol/L (22-29); Chloride 104 mmol/L (96-108); Creatinine Clr Calc Pharmacy 116.8; Estimated Glomerular Filt Rate > 60; Glucose Random 84 mg/dL (60-115); Lipase 13 U/L (8-78); Magnesium 1.9 mg/dL (1.6-2.6); Potassium 3.8 mmol/L (3.3-5.1); Sodium 139 mmol/L (135-145); Total Protein 6.8 g/dL (6.5-8.0)
--- NOTE | 2024-07-23 09:09 | PC.NURSE ---
20gIV placed in the left forearm - access wrapped w/ gauze for safety precautions. IVF infusing per provider order. pt remains calm/cooperative/asleep at this time. resting in no apparent distress. seizure pads remain in place. plan of care ongoing.
[2024-07-23] MEDS: 0.9 % Sodium Chloride 1,000 ML 999 ML IV (09:38)
--- NOTE | 2024-07-23 10:14 | PC.NURSE ---
chest xray being taken at this time.
--- NOTE | 2024-07-23 10:40 | ECG_ITS ---
Test Reason : hypoxia Blood Pressure : / mmHG Vent. Rate : 079 BPM Atrial Rate : 079 BPM P-R Int : 160 ms QRS Dur : 088 ms QT Int : 384 ms P-R-T Axes : 079 063 063 degrees QTc Int : 440 ms Normal sinus rhythm Minimal voltage criteria for LVH, may be normal variant ( Sokolow-Fragoso ) Borderline ECG When compared with ECG of 24-JUN-2024 00:14, Premature ventricular complexes are no longer Present Referred By: Nela Soto Electronically Signed By:Jonathan Huertas
--- NOTE | 2024-07-23 14:20 | PC.NURSE ---
PT ABLE TO STAY AWAKE AND EAT A SANDWICH AND PO FLUIDS, HE REMAINS DROWSY.
--- NOTE | 2024-07-23 15:01 | PC.NURSE ---
Patient up for discharge, patient awakes easily but quickly falls back to sleep. Provider aware stating to give patient a couple more hours before discharge.
--- NOTE | 2024-07-23 20:53 | PC.NURSE ---
Pt. requesting to stay here overnight because he has nowhere to sleep. OK per Giselle Armenta, creative assistant.
--- NOTE | 2024-07-23 23:39 | PC.NURSE ---
This show card writer assumed care of this Pt at 2300. Pt appears to be sleeping, awakens with tactile stimulation, calm and cooperative. Pt given PO fluids/sandwich per request.
== END 2024-07-24 07:31 | disposition home or self-care (01) ==
PROVIDERS: Emergency Medicine Emergency Medical Services; Emergency Provider Student in an Organized Health Care Education/Training Program
DX: F19.959 Other psychoactive substance use, unspecified with psychoactive substance-induced psychotic disorder, unspecified (principal); F30.9 Manic episode, unspecified; R09.02 Hypoxemia; D72.829 Elevated white blood cell count, unspecified; D50.8 Other iron deficiency anemias; J81.1 Chronic pulmonary edema
CPT/HCPCS: 36415; 71045; 80053; 82550; 83690; 83735; 85025; 93005; 96360; 96361; 96372; 99285; J1200; J1630; J2060

== ENCOUNTER → 2024-07-23 10:08 | Outpatient (BNV) | payer OTHER, SELFPAY | PROVIDERS: Emergency Provider Student in an Organized Health Care Education/Training Program; Visit Provider Radiology Diagnostic Radiology | DX: J81.0 Acute pulmonary edema (principal) | CPT/HCPCS: 71045 ==

== ENCOUNTER → 2024-07-23 10:40 | Outpatient (BNV) | payer OTHER, SELFPAY | PROVIDERS: Emergency Provider Student in an Organized Health Care Education/Training Program; Visit Provider Internal Medicine Cardiovascular Disease | DX: R09.02 Hypoxemia (principal) | CPT/HCPCS: 93010 ==

== ENCOUNTER 2024-07-27 04:56 | Emergency (ER) | payer OTHER, SELFPAY ==
--- NOTE | ~2024-07-27 | XR_ITS ---
EXAMINATION: XR HAND, RIGHT CLINICAL INFORMATION: injury/pain COMPARISON: None available. TECHNIQUE: PA, lateral, and oblique views of the right hand. FINDINGS: No fractures or acute-appearing subluxations identified. No arthropathic changes noted. Normal bone mineralization. Focal 2 mm cutaneous irregularity which may represent fortuitous visualization of a skin fold or laceration is seen along the radial aspect of the second middle phalanx. No focal soft tissue inflammatory changes identified. No embedded radiopaque foreign bodies visualized. XR/XR hand RT min 3V IMPRESSION: 1. No acute fractures or acute subluxations identified. 2. Focal 2 mm cutaneous irregularity which may represent fortuitous visualization of a skin fold or laceration is seen along the radial aspect of the second middle phalanx Electronically signed by: Bruno Mcclellan MD 07/27/2024 06:11 AM [facility]
[2024-07-27 05:05] VITALS: BP 107/71; PULSE 80; RESP 19; TEMP 37.2; O2SAT 97
[2024-07-27 05:14] VITALS: BMI 20.8
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
[2024-07-27 09:51] VITALS: BP 118/66; PULSE 64; RESP 16; TEMP 36.8; O2SAT 98
[2024-07-27 10:05] VITALS: BP 118/66; PULSE 64; RESP 16; TEMP 36.8; O2SAT 98
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
== END 2024-07-27 10:06 | disposition home or self-care (01) ==
PROVIDERS: Emergency Provider Emergency Medicine
DX: S60.221A Contusion of right hand, initial encounter (principal); Y04.2XXA Assault by strike against or bumped into by another person, initial encounter; F19.10 Other psychoactive substance abuse, uncomplicated; F11.20 Opioid dependence, uncomplicated; F17.200 Nicotine dependence, unspecified, uncomplicated; Y93.9 Activity, unspecified; Y92.9 Unspecified place or not applicable; Y99.9 Unspecified external cause status
CPT/HCPCS: 73130; 99282; 99284

== ENCOUNTER 2024-07-28 06:21 | Emergency (ER) | payer OTHER, SELFPAY ==
--- NOTE | ~2024-07-28 | XR_ITS ---
EXAMINATION: XR KNEE, RIGHT CLINICAL INFORMATION: right knee pain COMPARISON: None available. TECHNIQUE: Frontal and lateral views of the right knee. FINDINGS: No fracture or joint effusion. Alignment is anatomic. Joint spaces are maintained. No abnormal soft tissue calcification. XR/XR knee RT 2V IMPRESSION: Unremarkable two-view series of the right knee. Electronically signed by: Jonathan Nunez MD 07/28/2024 08:01 AM [facility]
[2024-07-28 06:28] VITALS: BP 136/76; PULSE 84; RESP 20; O2SAT 95; BMI 21.5
--- NOTE | 2024-07-28 06:50 | ED_ITS ---
HPI - General Adult General Chief complaint: ETOH/Substance Use Stated complaint: Heroin use Time Seen by Provider: 07/28/24 06:48 Source: patient and EMS Mode of arrival: EMS Limitations: no limitations History of Present Illness ED Provider: Yesica Shaw PA-C HPI narrative: Patient is a 39 year old assigned male at with a history of polysubstance abuse presenting to the emergency department today with right knee and right elbow pain. Patient states that he fell onto the concrete last night and injured his right knee and right elbow. Patient states that he did use heroin. Patient denies any dizziness, lightheadedness, abdominal pain, nausea, vomiting, fever, chills, blurry vision, double vision, loss of vision, chest pain, difficulty breathing, shortness of breath, back pain, night sweats, pain with urination, increased urinary frequency, increased urinary urgency, blood in his urine or stool, syncope or a near syncopal episode, bowel incontinence, bladder incontinence, or any other complaints at this time. Relieving factors: none Exacerbating factors: none Associated symptoms: denies other symptoms Treatments prior to arrival: none Related Data Previous Rx's ?Medication ?Instructions ?Recorded buprenorphine 8 mg-naloxone 2 mg 1 film buccal DAILY #4 ea 12/09/21 sublingual film (Suboxone) erythromycin 5 mg/gram (0.5 %) eye 0.5 inch ophthalmic (eye) TID #3.5 01/24/22 ointment grams cephalexin 500 mg tablet 500 mg PO Q6H 7 days #28 tabs 04/19/22 doxycycline hyclate 50 mg tablet 100 mg (2 x 50 mg) PO BID 7 days 04/19/22 #28 tabs cephalexin 500 mg capsule 500 mg PO TID 10 days #30 caps 07/17/24 doxycycline hyclate 100 mg tablet 100 mg PO BID 10 days #20 tabs 07/17/24 Allergies Allergy/AdvReac Type Severity Reaction Status Date / Time aripiprazole [From ABILIFY] Allergy Unknown UNKNOWN Verified 07/28/24 06:29 lithium [LITHIUM] Allergy Unknown UNKNOWN Verified 07/28/24 06:29 risperidone [From RISPERDAL] Allergy Unknown UNKNOWN Verified 07/28/24 06:29 Review of Systems Constitutional: Constitutional: Reports no additional constitutional co mplaints, Denies chills, Denies fever(s) and Denies night sweats Eyes: Eyes: Reports no additional eye complaints, Denies blurry vision, Denies change in vision, Denies diplopia, Denies eye discharge, Denies loss of vision and Denies eye pain ENT: Denies dizziness Cardiovascular: Cardiovascular: Reports no additional cardiovascular complaints, Denies chest pain, Denies lightheadedness, Denies Loss of Consciousness and Denies dyspnea Respiratory: Respiratory: Reports no additional respiratory complaints and Denies dyspnea Gastrointestinal: Gastrointestinal: Reports no additional gastrointestinal complaints, Denies abdominal pain, Denies melena, Denies hematochezia, Denies change in bowel habits and Denies change in stool character Genitourinary: Genitourinary: Reports no additional male genitourinary complaints, Denies hematuria, Denies oliguria, Denies difficulty urinating, Denies dysuria, Denies urinary frequency, Denies urinary hesitancy, Denies urinary incontinence and Denies urinary urgency Musculoskeletal: Musculoskeletal: Reports no additional musculoskeletal complaints, Denies numbness and Denies tingling Comments: right knee pain right elbow pain Neurologic: Denies dizziness, Denies loss of vision, Denies numbness and Denies tingling Psychiatric: Psychiatric: Reports no additional psychiatric complaints Endocrine: Endocrine: Reports no additional endocrine complaints Hematologic/Lymphatic: Hematologic/Lymphatic: Reports no additional hematologic/lymphatic complaints Allergic/Immunologic: Allergic/Immunologic: Reports no additional allergic/immunologic complaints [facility] Past Medical History Attestation statement: The following information was validated with the patient. Source: old records reviewed and nursing notes reviewed Medical History Impulse control disease Substance abuse Surgical History No history of previous surgery Social History Social History Unable to assess alcohol history related to: Unknown Alcohol intake: current Alcohol intake frequency: 3 or more drinks per day Patient Tobacco Use Status: Current everyday Tobacco user Substance Use Type: Crack/Cocaine and Heroin Advance Directives: No Advance Directives Information Provided: No Do you have a plan to hurt others: No Plan Physical Exam ED Vital Signs: Vital Signs - 24 hr 07/28/24 06:28 07/28/24 07:11 Temperature 98 F Pulse Rate 84 84 Respiratory Rate 20 18 Blood Pressure 136/76 136/76 Pulse Oximetry 95 98 Oxygen Delivery Method Room Air Room Air BMI result Body Mass Index 21.5 Const General: cooperative, no acute distress, alert and awake Nutritional Appearance: well nourished Orientation/consciousness: patient oriented x3 Limitations: no limitations HENMT Head: Yes normal to inspection and Yes atraumatic Ears: hearing grossly normal bilaterally and external ears normal General nose exam: Normal external nose present, no nasal discharge noted and no epistaxis Face and sinus: Yes normal facial exam, No abrasion and No laceration Mouth: Normal oral and palatal mucosa present, no drooling and no muffled voice Eyes General: appearance normal, both eyes and all related structures Periorbital: periorbital findings normal Eyelids: Yes eyelids normal Conjunctivae: conjunctivae normal Pupils: Equal, round and reactive pupils present EOM: EOMs intact bilaterally Neck Neck: Yes normal visual inspection, Yes full ROM and Yes no lymphadenopathy Chest Chest palpation & inspection: normal inspection of the chest Resp Effort & Inspection: normal respiratory effort and able to speak in complete sentences GI Inspection: Yes normal to inspection Neuro General: patient oriented x3 and moves all extremities Cranial nerves: Yes Equal, round and reactive pupils present Cognition (Neuro): normal cognition Extrem General: Yes normal to inspection, Yes full ROM and Yes capillary refill normal Psych Appearance: grossly normal Mental Status: mental status grossly normal Affect: normal affect Attitude: cooperative Thought process: Normal thought process present Thought content: Normal thought content present Insight: Good insight present (Psych) Medications Administered Discontinued Medications Generic Name Dose Route Start Last Admin Trade Name Freq PRN Reason Stop Dose Admin Ketorolac Tromethamine 15 mg 07/28/24 06:54 07/28/24 07:01 Ketorolac Tromethamine 15 Mg/Ml Vial IM 07/28/24 06:55 Not Given ONCE ONE Medical Decision Making Medical Decision Making MDM Narrative: Patient is a 39 year old assigned male at with a history of substance abu se presenting to the emergency department today with right elbow and right knee pain. Patient's physical exam was unremarkable. Patient's right knee x-ray showed no acute process. Patient requested to be discharged before his right elbow x-ray could be done. Patient refused to speak with the addiction team. I explained my physical exam findings as well as all test results to the patient. I answered all questions asked by the patient. I stressed the importance of the patient taking his medication as directed (either prescribed or as the over the counter packaging recommends). I stressed the importance of the patient following up with his primary care provider. I stressed the importance of the patient returning to the emergency department immediately if his symptoms were to worsen or if he were to develop any dizziness, shortness of breath, difficulty breathing, chest pain, blurry vision, loss of vision, nausea, vomiting, abdominal pain, fever, chills, back pain, or any other complaints. Patient verbalized agreement and understanding with this treatment plan and discharge. Differential Diagnosis Differential Diagnoses: The differential diagnosis associated with the presentation includes Substance use / abuse Right knee contusion Right elbow contusion Admission/Observation Consideration of admission/observation: Escalation of care including admission/observation considered Patient would have been admitted to the hospital had his work up had any findings where hospital admission was appropriate and his clinical presentation warranted hospital admission. Independent Interpretation I performed an independent interpretation of an: Plain X-Ray Interpretation: My interpretation is in agreement with the radiologist's impression of this imag ing study. EXAMINATION: XR KNEE, RIGHT CLINICAL INFORMATION: right knee pain COMPARISON: None available. TECHNIQUE: Frontal and lateral views of the right knee. FINDINGS: No fracture or joint effusion. Alignment is anatomic. Joint spaces are maintained. No abnormal soft tissue calcification. XR/XR knee RT 2V IMPRESSION: Unremarkable two-view series of the right knee. Electronically signed by: Jonathan Nunez MD 07/28/2024 08:01 AM EST Dictated By: Jonathan Nunez MD Signed By: Electronically signed by Jonathan Nunez MD 07/28/24 0801 Radiology Impression Discussion of test interpretation with radiology: I have reviewed the radiologist's reading. Independent Historian Clinical information obtained from an independent historian. History obtained from or confirmed by: EMS (EMS provided additional history and confirmed the history provided by the patient.) Discharge Plan Discharge Clinical Impression: Heroin use, Acute knee pain, Elbow pain Patient Disposition: Home, Self-Care Instructions: Knee Pain (ED), Opioid Use Disorder (ED) Additional Instructions: Please avoid the use of illegal substances. Follow up with your primary care provider. Return to the emergency department immediately if your symptoms worsen or if you develop any dizziness, shortness of breath, difficulty breathing, chest pain, blurry vision, loss of vision, nausea, vomiting, abdominal pain, fever, chills, back pain, or any other complaints. [facility] ([facility]) at [facility]: [address] [place] [id number] Walk in hours from 10am - 12pm Open from 10am - 12pm [facility] Crisis Services: [address] [place] [address] Walk in hours from 10am - 12pm Open 31/03 [facility]: [address] [place] [id number] [address] [place] [id number] Hours: M-F 8am to 8pm Friday and Friday 9am to 5pm Prescriptions: No Action buprenorphine-naloxone [Suboxone] 8-2 mg film 1 film buccal DAILY Qty: 4 0RF erythromycin 5 mg/gram (0.5 %) ointment 0.5 inch ophthalmic (eye) TID Qty: 3.5 0RF Rx Instructions: Have ribbon to the right eye 3 times a day for 5 days doxycycline hyclate 50 mg tablet 100 mg PO BID 7 Days Qty: 28 0RF cephalexin 500 mg tablet 500 mg PO Q6H 7 Days Qty: 28 0RF cephalexin 500 mg capsule 500 mg PO TID 10 Days Qty: 30 0RF doxycycline hyclate 100 mg tablet 100 mg PO BID 10 Days Qty: 20 0RF Referrals: [facility] [place] Family Medicine [Provider Group] (Call to establish and follow up with a primary care provider. If you already have a primary care provider, please follow up with them.) [facility] [Provider Group] (Call to establish and follow up with a primary care provider. If you already have a primary care provider, please follow up with them.) [facility] Primary Care,[facility] [Provider Group] (Call to establish and follow up with a primary care provider. If you already have a primary care provider, please f ollow up with them.) Interventions: ED Discharge Assessment Last Done: 07/28/24 07:11 Discharge Date/Time: 07/28/24 07:12 Print Language: Frisian
--- NOTE | 2024-07-28 07:01 | PC.NURSE ---
Patient declined toradol stating he needs something stronger that toradol is pussy shit argumentative with staff stating he needs to leave. Declined toradol stating he is leaving
[2024-07-28 07:11] VITALS: BP 136/76; PULSE 84; RESP 18; TEMP 36.6; O2SAT 98
== END 2024-07-28 07:12 | disposition home or self-care (01) ==
PROVIDERS: Emergency Provider Emergency Medicine
DX: F19.10 Other psychoactive substance abuse, uncomplicated (principal); M25.561 Pain in right knee; M25.521 Pain in right elbow; Z91.81 History of falling; F11.20 Opioid dependence, uncomplicated
CPT/HCPCS: 73560; 99282; 99283